=== PATIENT | male | born 1975 | race Caucasian/White ===

== ENCOUNTER 2019-03-18 08:16 | Emergency (ER) | payer OTHER ==
--- NOTE | 2019-03-18 08:54 | EDM.PDOC ---
ED HPI GENERAL MEDICAL PROBLEM - General Chief Complaint: Upper Extremity Injury/Pain Stated Complaint: PULLED A MUSCLE ON RIGHT ELBOW Time Seen by Provider: 03/18/19 08:40 Source of Information: Reports: Patient History Limitations: Reports: No Limitations - History of Present Illness INITIAL COMMENTS - FREE TEXT/NARRATIVE: 43-year-old male presents to the ED with acute pain in his right elbow and volar proximal forearm. Patient states at work yesterday afternoon he was working on getting a large break from off of a truck when he developed sudden onset of severe pain in the distribution of the biceps tendon where it inserts into the ulna. States sudden onset of severe pain and disability since. He comes into the ED with his arm kept in 90 flexion. Throughout the lower biceps muscle as well. He can still extend the arm but it is painful. Denies any other injuries. Patient is right hand dominant. Onset: Sudden Onset Date: 03/17/19 Duration: Hour(s): (He is just states yesterday afternoon not sure what time.) Location: Reports: Upper Extremity, Right Quality: Reports: Ache, Throbbing, Other (Limited ability to flex and extend) Severity: Moderate (at the elbow) Improves with: Reports: Rest ( 6 out of 10 ) Worsens with: Reports: Movement (Attempt to fully flex or extend the arm makes it very painful) Context: Reports: Other (Was pulling heavily on a break from from a vehicle to try and remove it when he developed sudden onset of pain in his biceps insertion site right ulna.). Denies: Activity, Exercise, Lifting, Sick Contact , Trauma Associated Symptoms: Reports: No Other Symptoms Treatments ALL AROUND PRESSER: Reports: NSAIDS (Motrin.) Right Elbow Pain Score (Numeric/FACES): 7 - Related Data Allergies Allergy/AdvReac Type Severity Reaction Status Date / Time bee pollen Allergy Swelling Verified 03/18/19 08:42 Home Meds: Home Meds . [No Known Home Meds] 03/18/19 [History] Past Medical History - Past Surgical History Male Surgical History: Reports: Vasectomy Social & Family History - Tobacco Use Smoking Status *Q: Current Every Day Smoker Years of Tobacco use: 22 Packs/Tins Daily: 1 - Living Situation & Occupation Living situation: Reports: Occupation: Employed Review of Systems - Review of Systems Review Of Systems: See Below Constitutional: Reports: No Symptoms Eyes: Reports: No Symptoms Ears: Reports: No Symptoms Nose: Reports: No Symptoms Mouth/Throat: Reports: No Symptoms Respiratory: Reports: No Symptoms Cardiovascular: Reports: No Symptoms GI/Abdominal: Reports: No Symptoms Genitourinary: Reports: No Symptoms Musculoskeletal: Reports: Arm Pain Skin: Reports: No Symptoms (Right arm pain. See history of present illness) Neurological: Reports: No Symptoms Psychiatric: Reports: No Symptoms ED EXAM, GENERAL - Physical Exam Exam: See Below Exam Limited By: No Limitations General Appearance: Alert, WD/WN, Moderate Distress (He is in obvious discomfort. He presents with his right arm kept at 90 flexion. I position of comfort) Eye Exam: Bilateral Eye: Normal Inspection Peripheral Pulses: 3+: Radial (L), Radial (R) Extremities: Other (Examination limited to the right upper extremity although comparison was made to the left upper extremity. There is no obvious disruption of the true biceps muscle. It is tender throughout the mid and distal portion of the muscle however appears to be swollen distally. Maximal point of tenderness is at the insertion site on the ulna. He is still able to resist flexion against resistance. This did cause significant pain however. Medically he has a partial tear of his biceps tendon insertion site. No pain in the superior biceps tendon insertions in the shoulder.) Neurological: Alert, Oriented, CN II-XII Intact, Normal Cognition, Normal Gait Psychiatric: Anxious Skin Exam: Warm, Dry, Intact, Normal Color, No Rash Course - Vital Signs Last Recorded V/S: Last Vital Signs Temp 35.9 C 03/18/19 08:38 Pulse 85 03/18/19 08:38 Resp 16 03/18/19 08:38 BP 141/92 H 03/18/19 08:38 Pulse Ox 97 03/18/19 08:38 - Orders/Labs/Meds Orders: Active Orders 24 hr Category Date Time Status DME for Discharge [COMM] Stat Oth 03/18/19 08:50 Ordered - Radiology Interpretation Free Text/Narrative:: 43-year-old male presents to the ED with a work-related injury. He was pulling on a brake drum from a large truck yesterday afternoon in the workplace when he developed sudden onset of severe pain in his right elbow proximal volar forearm area. Since that time he's been on her hardly able to flex or extend at the elbow. Patient has pain throughout the distal and mid portions of his biceps muscle and severe pain at the insertion of the biceps tendon on the ulna. He is unable to pronate or supinate at all due to pain. Clinically he has partial tear of the biceps tendon. MRI of the elbow will be arranged for tomorrow. He will then follow-up with .. Patient was offered analgesia but prefers just to use Motrin. Will be placed in a sling and swath for comfort and advised ice the area as much as possible one half hour out of every 4 hours today and tomorrow. Departure - Departure Time of Disposition: 08:50 Disposition: Home, Self-Care 01 Condition: Fair Clinical Impression: Tear of distal tendon of biceps Qualifiers: Encounter type: initial encounter Laterality: right Qualified Code(s): S46.211A - Strain of muscle, fascia and tendon of other parts of biceps, right arm, initial encounter - Discharge Information *PRESCRIPTION DRUG MONITORING PROGRAM REVIEWED*: Not Applicable *COPY OF PRESCRIPTION DRUG MONITORING REPORT IN PATIENT CARLOS EDUARDO: Not Applicable Instructions: Biceps Tendon Disruption (Proximal) Referrals: PCP,Not In Area [Primary Care Provider] - Forms: ED Department Discharge Additional Instructions: Evaluation the emergency room today in regards to acute injury to your right elbow area that occurred while removing a large right drum from a truck yesterday. Sudden onset of severe pain in the volar aspect of your elbow/right forearm. Examination reveals at least partial disruption of the biceps tendon insertion site on the ulna which is in your forearm. An MRI is going to be required to establish how much of a tear there had is and whether or not it will require surgical repair. I will have MRI call you tomorrow morning to try and arrange an appointment for tomorrow. Follow-up should be with Dr. Sanchez-- orthopedic surgeon. These call [phone] to arrange an appointment tomorrow morning after you know what time you're MRI is going to be done. In the meantime as you suggested immobilized the arm with sling and swath to relieve pain. Ice pack to the area one half hour out of every 4 hours today and tomorrow 48 hours after injury. Motrin 600 mg every 6 hours as needed for pain relief. Off work until definitive treatment plan can be advised. I.e. whether surgery is indicated or not. A partial tear would take about 2 weeks to heal. If surgery is indicated it takes closer to 6--8 weeks to heal. - My Orders Last 24 Hours: My Active Orders 03/18/19 08:50 DME for Discharge [COMM] Stat - Assessment/Plan Last 24 Hours: My Active Orders 03/18/19 08:50 DME for Discharge [COMM] Stat
== END 2019-03-18 09:30 | disposition home or self-care (01) ==
LOC: JD.ED 08:16
DX: S46.211A Strain of muscle, fascia and tendon of other parts of biceps, right arm, initial encounter (principal); F17.210 Nicotine dependence, cigarettes, uncomplicated; Z91.030 Bee allergy status; X50.0XXA Overexertion from strenuous movement or load, initial encounter
CPT/HCPCS: 99283